=== PATIENT | female | born 1985 | race African-American/Black ===

== ENCOUNTER → 2018-10-27 | Day surgery (SDC) | payer OTHER ==
[2018-10-24 13:18] LABS: BASOPHILS % 0.2 % (0.0-1.0); EOSINOPHILS % 0.4 % (0.0-6.0); HEMATOCRIT 36.8 % (34.2-44.1); HEMOGLOBIN 12.5 g/dL (12.0-16.0); LYMPHOCYTES # (AUTO) 2.1 (1.0-3.2); LYMPHOCYTES % 39.1 % (18.0-39.1); MEAN CORPUSCULAR HEMOGLOBIN 29.6 pg (28-32); MONOCYTES # (AUTO) 0.4 (0.2-0.8); MONOCYTES % 7.6 % (4.4-11.3); NEUTROPHILS # (AUTO) 2.9 (2.1-6.9); NEUTROPHILS % 52.5 % (38.7-80.0); PLATELET COUNT 222 x10e3/uL (140-360); RED BLOOD COUNT 4.23 x10e6/uL (3.6-5.1); RED CELL DISTRIBUTION WIDTH 12.5 % (11.7-14.4)
--- NOTE | 2018-10-24 13:32 | Diagnostic Imaging Report ---
EXAMINATION: CHEST 2 VIEWS INDICATION: Pre-op. COMPARISON: None FINDINGS: TUBES and LINES: None. LUNGS: Lungs are hyperinflated. There is no evidence of pneumonia or pulmonary edema. Nodular opacities projecting over the bilateral lower lungs likely represent nipple shadows. Mild patchy left basilar opacity, likely atelectasis. PLEURA: No pleural effusion or pneumothorax. HEART AND MEDIASTINUM: The cardiomediastinal silhouette is unremarkable. BONES AND SOFT TISSUES: No acute osseous abnormality. UPPER ABDOMEN: No free air under the diaphragm. IMPRESSION: No acute radiographic abnormality. Signed by: Dr. Cuate Ocasio MD on 10/24/2018 1:29 PM
[2018-10-24 13:35] LABS: BLOOD UREA NITROGEN 12 mg/dL (7-26); BUN/CREATININE RATIO 15 (6-25); CALCIUM 9.4 mg/dL (8.4-10.2); CARBON DIOXIDE 27 mmol/L (22-29); CHLORIDE 101 mmol/L (98-107); CREATININE, SERUM 0.79 mg/dL (0.57-1.11); EST GLOMERULAR FILTRATION RATE > 60 ML/MIN (60-); GLUCOSE 75 mg/dL (74-118); SODIUM 134 mmol/L (136-145)
[~2018-10-27] MED LIST: BIRTH CONTROL PO; BUPIVACAINE HCL 0.5% INJ 30 ML VIAL INJ ONE; CETIRIZINE HCL10 M1; CETIRIZINE HCL10 MG PO; CLINDAMYCIN PHOS 900MG/ 50ML 50 ML IV ONE; DEXAMETHASONE SOD PHOS INJ 4 MG/ML VIAL ONE; FENTANYL CITRATE/PF 100MCG/2 ML INJ ONE; IBUPROFEN 800MG/ 250ML 250 ML IV ONE; LIDOCAINE HCL 2% LOCAL INJ 5 ML SDV VIAL INJ ONE; MIDAZOLAM HCL 2 MG/2 ML VIAL ONE; NEOMYCIN/POLYMYX/BACITR OINT 0.9 GM PKT ONE; NEOSTIGMINE 1 MG/ML 10ML VIAL ONE; ONDANSETRON HCL INJ 2MG/ML 2ML 2 MG/ML VIAL ONE; PROPOFOL IV EMULSION 10 MG/ML 20 ML VIAL ONE; SEVOFLURANE INHAL SOLN 250 ML PEN BTL ONE; WOMENS VITAMIN PO
--- OUTSIDE RECORDS SUMMARY | 2018-10-27 06:03 | XMS REPORT | Continuity of Care Document ---
Author Author [facility] Interface Address Unknown Phone Unavailable Problems Problem Status Onset Date Classification Date Reported Comments Source Allergic rhinitis 12/13/2016 Diagnosis 12/13/2016 [facility] Medications Medication Details Route Status Patient Instructions Ordering Provider Order Date Source Azelastine hydrochloride 0.137 MG/ACTUAT Metered Dose Nasal [place] azelastine 137 mcg (0.1 %) nasal spray aerosol [place] 2 sprays in each nostril 2 X daily as needed. Active [facility] Prednisone 20 MG Oral Tablet prednisone 20 mg tablet Take 2 tabs daily x 3 days, 1 tab daily x 3 days Active [facility] Reclipsen (28) 0.15 mg-0.03 mg tablet Reclipsen (28) 0.15 mg-0.03 mg tablet Active [facility] Allergies, Adverse Reactions, Alerts Substance Category Reaction Severity Reaction type Status Date Reported Comments Source Penicillins Hives Allergy to substance 12/13/2016 [facility] Immunizations Immunization Date Given Site Status Last Updated Comments Source Results Order Name Results Value Reference Range Date Interpretation Comments Source Vital Signs Vital Sign Value Date Comments Source Diastolic (mm Hg) 76 12/13/2016 [facility] Height 65 12/13/2016 [facility] Systolic (mm Hg) 128 12/13/2016 [facility] Weight 151 12/13/2016 [facility] Encounters Location Location Details Encounter Type Encounter Number Reason For Visit Attending Provider ADM Date DC Date Status Source [place] - [facility] - [id number] Sheba Armijo, RESPIRATORY CARE INSTRUCTOR: [address] [place] [phone], Ph. [id number] Sheba Armijo 12/13/2016 [facility] Procedures Procedure Code Date Perfomer Comments Source
--- OUTSIDE RECORDS SUMMARY | 2018-10-27 06:03 | XMS REPORT | Encounter Summary ---
Author Organization Unknown Address [address] [place] [id number] Phone [phone] Reason for Visit Medical Complaint Instructions 1. Allergic rhinitis azelastine 137 mcg (0.1 %) nasal spray aerosol prednisone 20 mg tablet rhinitis: care instructions Discussion Note Avoid allergents, saline nose rinse, Breath warm moist air/humidifier. antihistamine/decongestan i.e sudafedt as needed. Continue steoird nose sprays daily. Follow up with PCP or [facility] if worsening symptoms. Plan of Care Reminders Provider Appointments None recorded. Lab None recorded. Referral None recorded. Procedures None recorded. Surgeries None recorded. Imaging None recorded. Medications Name Start Date azelastine 137 mcg (0.1 %) nasal spray aerosol [place] 2 sprays in each nostril 2 X daily as needed. prednisone 20 mg tablet Take 2 tabs daily x 3 days, 1 tab daily x 3 days Reclipsen (28) 0.15 mg-0.03 mg tablet Medications Administered None recorded. Vitals Height Weight BMI Blood Pressure 5 ft 5 in 151 lbs 25.1 kg/m2 128/76 mm[Hg] Lab Results None recorded. Allergies Code Code System Name Reaction Severity Onset Penicillins Hives Problems None recorded. Procedures None recorded. Vaccine List None recorded. Social History Smoking Status Never Smoker Past Encounters 12/13/2016 Allergic Rhinitis Sheba Armijo GLOBAL PROGRAM DIRECTOR: [address] [place] [phone], Ph. History of Present Illness Eobev-Jjqrgusjjr-Kxufafb Reported By: Patient HPI: Location: head/sinuses. Quality: nasal/sinus congestion. Duration: 10days. Severity: moderate. Onset/Timing: gradual. Context: no sick contacts, no foreign travel, non-smoker, allergies. Modifying factors: OTC medication. Associated Symptoms: no sputum production, no shortness of breath, no wheezing, no change in number of pillows needed to sleep at night, no sweats, no significant weight gain, no significant weight loss, no morning cough, no sore throat, no vomiting, no diarrhea, no rash, no fever, no muscle aches, nausea, headache Notes: +dizziness, sinus pressure Review of Systems Basic Reported By: Patient Constitutional: Constitutional: no fever Eyes: Eyes: no eye complaints Rqsg-Nuew-Fchoa-Throat: Ears: no ear complaints. Nose: nose/sinus problems. Mouth/Throat: no sore throat, no bleeding gums, no mouth complaints, no teeth problems Cardiovascular: Cardiovascular: no chest pain, no shortness of breath, no known heart murmur Respiratory: Respiratory: no cough, no wheezing, no shortness of breath Gastrointestinal: Gastrointestinal: no abdominal pain, no vomiting / diarrhea Genitourinary: Genitourinary: no urinary complaints, no discharge Musculoskeletal: Musculoskeletal: no muscle aches, no muscle weakness, no arthralgias/joint pain, no back pain Skin: Skin: no abnormal / changing mole, no jaundice, no rashes Neurologic: Neurologic: no loss of consciousness, no weakness, no numbness, no seizures, dizziness, headache Physical Exam Adult Basic, Adult Female Complete Reported By: Patient Constitutional: General Appearance: healthy-appearing, well-nourished, well-developed. Level of Distress: NAD. Ambulation: ambulating normally Psychiatric: Mental Status: active and alert. Orientation: to time, to place, to person Cnv-Zksz-Cevbo-Throat: Ears: no lesions on external ear, no outer ear tenderness, EACs clear, TMs clear. Hearing: no hearing loss. Nose: no lesions on external nose, no septal deviation, no sinus tenderness, nasal obstruction, nasal discharge--rhinorrhea; nostrils & turbinates + swollen, mild erythema. Lips, Teeth, and Gums: no mouth or lip ulcers, no bleeding gums, normal dentition. Oropharynx: moist mucous membranes, no erythema, no exudates, tonsils not enlarged Neck: Neck: supple, trachea midline, no masses, FROM. Lymph Nodes: no cervical LAD Lungs: Respiratory effort: no dyspnea, no tachypnea, no use of accessory muscles, no intercostal retractions. Auscultation: breath sounds normal Cardiovascular: Heart Auscultation: RRR, no murmurs Neurologic: Gait and Station: normal gait, normal station Skin: Inspection and palpation: no rash, no lesions, good turgor, no jaundice
--- OUTSIDE RECORDS SUMMARY | 2018-10-27 06:04 | XMS REPORT ---
Author Author [facility] Address Unknown Phone Unavailable Care Team Providers Care Intervention Nurse Name Role Phone PAN OROZCO Unavailable Unavailable Problems This patient has no known problems. Allergies, Adverse Reactions, Alerts This patient has no known allergies or adverse reactions. Medications This patient has no known medications. Results Test Description Test Time Test Comments Text Results Atomic Results Result Comments CHEST 2 VIEWS 2018-10-24 13:27:00 [place] [id number] [place] [id number] Patient Name: KAREN WOOD MR #: [id number] : 1985 Age/Sex: 33/F Req #: [id number] Adm Physician: Ordered by: PAN OROZCO DPM Report #: [id number] Location: OR Room/Bed: Procedure: [id number] DX/CHEST 2 VIEWS Exam Date: 10/24/18 Exam Time: 1240 REPORT STATUS: Signed EXAMINATION: CHEST 2 VIEWS INDICATION: Pre-op. COMPARISON: None FINDINGS: TUBES and LINES: None. LUNGS: Lungs are hyperinflated. There is no evidence of pneumonia or pulmonary edema. Nodular opacities projecting over the bilateral lower lungs likely represent nipple shadows. Mild patchy left basilar opacity, likely atelectasis. PLEURA: No pleural effusion or pneumothorax. HEART AND MEDIASTINUM: The cardiomediastinal silhouette is unremarkable. BONES AND SOFT TISSUES: No acute osseous abnormality. UPPER ABDOMEN: No free air under the diaphragm. IMPRESSION: No acute radiographic abnormality. Signed by: Dr. Leobardo Yanez MD on 10/24/2018 1:29 PM Dictated By: LEOBARDO YANEZ MD [id number] Transcribed By: REUBEN on 10/24/18 1329 COPY TO: PAN OROZCO DPM
[2018-10-27 09:05] VITALS: BP 136/97
--- NOTE | 2018-10-27 14:52 | Operative Report ---
DATE OF PROCEDURE: 10/27/2018 SURGEON: Felix Suarez DPM PREOPERATIVE DIAGNOSIS: Tailor's bunion deformity with large bursa on the lateral aspect of the left foot. POSTOPERATIVE DIAGNOSIS: Tailor's bunion deformity with large bursa on the lateral aspect of the left foot. TITLE OF OPERATION: Tailor's bunionectomy with excision of subcutaneous bursa, left foot. ANESTHESIA: General endotracheal. HEMOSTASIS: A left thigh tourniquet at 350 mmHg. PROCEDURE IN DETAIL: The patient was taken to the operating room in a mildly sedated state and placed on the operating table in supine position. Following induction of general anesthetic, the left lower extremity was elevated to 60 degrees to exsanguinate before inflating the pneumatic tourniquet to 350 mmHg to good hemostasis. Left lower extremity was placed on the operating table piror to performing following procedure. Procedure #1 is a tailor's bunionectomy of the left foot. An approximate 4 cm dorsal linear incision made across the dorsal lateral aspect of the 5th metatarsal head of the left foot. Incision was deepened via sharp and blunt dissection down to the level of dorsal capsular structure. Care was taken to identify and retract all vital structures encountered. A very large adventitious bursa was noted between the lateral capsule and the skin. This was very inflamed and previously painful to the patient. The bursa itself was identified, dissected free of all surrounding and constricting materials, all superficial bleeders and vital structures were retracted from harm's way. The bursa itself was excised and sent to pathology for further evaluation. At this point, a [id number] linear capsulotomy was performed overlying the prominent 5th met head. Lateral aspect was remodeled utilizing oscillating saw and rotary bur. The areas of concern were irrigated with copious amounts of sterile saline solution. Deep closure was 3-0 Vicryl, subcutaneous closure 4-0 Vicryl, and skin closure 4-0 Prolene in a continuous subcutaneous manner. The area having thus been closed was blocked with 0.5% Marcaine and Decadron [place]. Release of the pneumatic thigh tourniquet showed a normal hyperemic flush to all digits of the left foot and the patient left the operating room with vital signs stable in apparent satisfactory condition having tolerated both the anesthetic and procedure very well. MASON José /[id number]
== END | disposition home or self-care (01) ==
LOC: OR 05:17
PROVIDERS: ATTEND Podiatrist Foot Surgery
DX: M21.622 Bunionette of left foot (principal); M71.872 Other specified bursopathies, left ankle and foot; F17.290 Nicotine dependence, other tobacco product, uncomplicated; Z88.0 Allergy status to penicillin; Z01.810 Encounter for preprocedural cardiovascular examination; Z01.812 Encounter for preprocedural laboratory examination; Z01.818 Encounter for other preprocedural examination
CPT/HCPCS: 28110; 36415; 71046; 76000; 80048; 81025; 85025; 88304; 93005; J1100; J2001; J2250; J2405; J2704; J2710